=== PATIENT | female | born 1970 | race Hispanic/Latino ===

== ENCOUNTER 2018-05-11 19:44 | Observation (INO) | payer OTHER ==
[~2018-05-11] VITALS: Ht 160 cm; Wt 85.3 kg
[~2018-05-11 19:44] MED LIST: ADVIL; BENTYL; DEXILANT; HYDROCHLOROTHIAZIDE; HYDROCODON-ACE1 EA11 PO; ZOFRAN ODT4 MG SL
[2018-05-11 20:37] LABS: BASOPHILS # (AUTO) 0.1 (0.0-0.1); BASOPHILS % 0.9 % (0.0-1.0); EOSINOPHILS # (AUTO) 0.3 (0.0-0.4); EOSINOPHILS % 4.5 % (0.0-6.0); HEMATOCRIT 23.3 % (34.2-44.1); LYMPHOCYTES % 43.5 % (18.0-39.1); MEAN CORPUSCULAR HEMOGLOBIN 15.9 pg (28-32); MEAN CORPUSCULAR HGB CONC 27.5 g/dL (31-35); MEAN CORPUSCULAR VOLUME 57.8 fL (81-99); MONOCYTES # (AUTO) 0.5 (0.2-0.8); MONOCYTES % 6.6 % (4.4-11.3); NEUTROPHILS # (AUTO) 3.1 (2.1-6.9); NEUTROPHILS % 44.4 % (38.7-80.0); PLATELET COUNT 387 x10e3/uL (140-360); RED BLOOD COUNT 4.03 x10e6/uL (3.6-5.1); RED CELL DISTRIBUTION WIDTH 19.9 % (11.7-14.4)
[2018-05-11 20:38] LABS: HEMOGLOBIN 6.4 g/dL (12.0-16.0)
[2018-05-11 20:43] LABS: INR 1.02; PROTHROMBIN TIME 12.6 seconds (11.9-14.5)
[2018-05-11 20:44] LABS: PARTIAL THROMBOPLASTIN TIME 26.6 seconds (23.8-35.5)
[2018-05-11 20:55] LABS: % IRON SATURATION 2 % (15-50); ALANINE AMINOTRANSFERASE 7 IU/L (0-55); ALBUMIN 3.7 g/dL (3.5-5.0); ALBUMIN/GLOBULIN RATIO 0.9 (0.8-2.0); ALKALINE PHOSPHATASE 41 IU/L (40-150); ANION GAP 14.7 mmol/L (8-16); BLOOD UREA NITROGEN 21 mg/dL (7-26); BUN/CREATININE RATIO 29 (6-25); CALCIUM 9.2 mg/dL (8.4-10.2); CARBON DIOXIDE 23 mmol/L (22-29); CHLORIDE 108 mmol/L (98-107); CREATINE KINASE 34 IU/L (29-168); CREATININE, SERUM 0.73 mg/dL (0.57-1.11); EST GLOMERULAR FILTRATION RATE > 60 ML/MIN (60-); GLUCOSE 90 mg/dL (74-118); IRON 12 ug/dL (50-170); POTASSIUM 3.7 mmol/L (3.5-5.1); SODIUM 142 mmol/L (136-145); TOTAL IRON BINDING CAPACITY 505 ug/dL (261-478); TRANSFERRIN 361 mg/dL (180-382)
--- NOTE | 2018-05-11 20:56 | Diagnostic Imaging Report ---
EXAM: XR CHEST 1 VIEW DATE: 05/11/2018 8:16 PM INDICATION: Shortness of breath COMPARISON: None FINDINGS: Lines and Tubes: None Heart and Mediastinum: No acute cardiomediastinal findings. Lungs and Pleura: No significant pleural effusion, pneumothorax, or focal consolidation. Bones and Soft Tissues: No acute findings. IMPRESSION: 1. No acute cardiopulmonary findings. Signed by: Dr. Da Manley MD on 05/11/2018 8:53 PM
[2018-05-11 21:15] LABS: FERRITIN 1.14 ng/mL (4.63-204.00)
[2018-05-11] MEDS ORDERED: ONDANSETRON HCL INJ 2 MG/ML VIAL IV PRN (22:00)
[2018-05-11] MEDS ORDERED: SODIUM CHLORIDE 0.9% 250ML 250 ML IV ONE (22:00)
[2018-05-11] MEDS ORDERED: FUROSEMIDE INJ 10 MG/ML 2 ML VIAL IV PRN (22:00)
[2018-05-11] MEDS ORDERED: SODIUM CHLORIDE FLUSH 10 ML SYR INJ PRN (22:00)
[2018-05-12] MEDS ORDERED: SODIUM CHLORIDE 0.9% 1000ML 1,000 ML ONE (01:52)
[2018-05-12 05:44] LABS: BASOPHILS % 0.7 % (0.0-1.0); EOSINOPHILS # (AUTO) 0.3 (0.0-0.4); EOSINOPHILS % 4.1 % (0.0-6.0); HEMATOCRIT 24.8 % (34.2-44.1); HEMOGLOBIN 7.2 g/dL (12.0-16.0); LYMPHOCYTES # (AUTO) 2.6 (1.0-3.2); LYMPHOCYTES % 43.3 % (18.0-39.1); MEAN CORPUSCULAR HEMOGLOBIN 18.3 pg (28-32); MEAN CORPUSCULAR VOLUME 62.9 fL (81-99); MONOCYTES # (AUTO) 0.4 (0.2-0.8); MONOCYTES % 6.5 % (4.4-11.3); NEUTROPHILS # (AUTO) 2.7 (2.1-6.9); NEUTROPHILS % 45.1 % (38.7-80.0); PLATELET COUNT 290 x10e3/uL (140-360); RED BLOOD COUNT 3.94 x10e6/uL (3.6-5.1); RED CELL DISTRIBUTION WIDTH 24.6 % (11.7-14.4)
[2018-05-12 06:07] LABS: ALANINE AMINOTRANSFERASE 6 IU/L (0-55); ALBUMIN 3.4 g/dL (3.5-5.0); ALKALINE PHOSPHATASE 34 IU/L (40-150); ANION GAP 12.6 mmol/L (8-16); BLOOD UREA NITROGEN 20 mg/dL (7-26); BUN/CREATININE RATIO 31 (6-25); CALCIUM 8.7 mg/dL (8.4-10.2); CARBON DIOXIDE 23 mmol/L (22-29); CHLORIDE 109 mmol/L (98-107); CREATININE, SERUM 0.64 mg/dL (0.57-1.11); EST GLOMERULAR FILTRATION RATE > 60 ML/MIN (60-); GLUCOSE 88 mg/dL (74-118); POTASSIUM 3.6 mmol/L (3.5-5.1); SODIUM 141 mmol/L (136-145)
[2018-05-12 07:16] LABS: HEMATOCRIT 25.9 % (34.2-44.1); HEMOGLOBIN 7.5 g/dL (12.0-16.0)
--- NOTE | 2018-05-12 07:39 | History and Physical ---
The patient came in for symptomatic anemia. HISTORY OF PRESENT ILLNESS: This patient was seen in the office for fatigue, tiredness and was noted to have pallor. H and H was drawn at that time, and it was 6.6. The patient was sent to the emergency room for possible blood transfusion. PAST MEDICAL HISTORY: No medical history except for heavy menstrual cycles. SURGICAL HISTORY: Includes history of gastric bypass and also history of gallbladder being removed. REVIEW OF SYSTEMS: Positive for some chest pressure. Positive for some tachycardia. No nausea, vomiting, diarrhea. No constipation, rectal bleeding, hematochezia, hematemesis. Positive for increased uterine bleeding, more than heavier regular periods. SOCIAL HISTORY: No ETOH. No IV drug abuse. PHYSICAL EXAMINATION GENERAL: The patient is alert and oriented times 3. VITAL SIGNS: Blood pressure is 135/78, heart rate 80-90, respirations 17, oxygen saturation is 100%. HEENT: Normocephalic and atraumatic. Pupils reactive to light and accommodation. CV: S1 and S2 normal. Regular rate and rhythm. ABDOMEN: Nontender and nondistended. EXTREMITIES: No clubbing. No cyanosis. No edema. NEUROLOGIC: Alert and oriented times 3. No focal deficits. LABS AND X-RAYS: EKG is normal sinus rhythm with rate of 72. Chest x-ray normal. CBC with hemoglobin 6.4, hematocrit 23.3. Chemistry with mild hypochloremia of 108. Coagulation studies were normal. ASSESSMENT: Symptomatic anemia. The patient has been transfused 2 units of packed red blood cells. We are waiting for a post transfusion H and H. Will continue monitoring the patient. IV iron will be given once the patient comes to the floor. Will also consult gastroenterology. Do an abdominal ultrasound just to make sure of any uterine pathology. Further recommendations per clinical course. Will continue monitoring the patient. Job#: [id number] JUAN PABLO
[2018-05-12 09:18] LABS: EOSINOPHILS % (MANUAL) 5 % (0-7); LYMPHOCYTES % (MANUAL) 47 % (19-48); MONOCYTES % (MANUAL) 7 % (3.4-9.0); NEUTROPHILS % (MANUAL) 41 % (40-74)
[2018-05-12 09:19] LABS: PLATELET ESTIMATE ADEQUATE; PLATELET MORPHOLOGY COMMENT NORMAL; RBC MORPHOLOGY COMMENT NORMAL
[2018-05-12 09:20] LABS: ANISOCYTOSIS SLIGHT; HYPOCHROMASIA MODERATE
--- NOTE | 2018-05-12 11:18 | Diagnostic Imaging Report ---
PROCEDURE:ABDOMINAL ULTRASOUND COMPARISON:None. INDICATIONS: Anemia, Heavy Bleeding TECHNIQUE: Transverse and longitudinal images of the upper abdomen were obtained. FINDINGS: Liver: Size: 14 cm in the right midclavicular line, normal Appearance: Normal echogenicity, smooth contour Mass: No focal masses Spleen: Size: 10.2 cm in length, normal Echogenicity: Normal Mass: No focal masses Gallbladder: Status post cholecystectomy. Bile Ducts: Intrahepatic Ducts: No dilatation Extrahepatic Ducts: Common bile duct measures 0.3 cm, no dilatation Pancreas: Visualized portions of the neck and proximal body are normal. Right Kidney: Size: 9 cm Echogenicity: Normal Collecting System: No hydronephrosis Stone: None Cyst/Mass: None Left Kidney: Size: 10.2 cm Echogenicity: Normal Collecting System: No hydronephrosis Stone: None Cyst/Mass: None Vessels: Aorta: Visualized portions are normal, a portion is obscured by overlying bowel gas Inferior Vena Cava: Visualized portions and normal Main Portal Vein: 0.8 cm, normal size with hepatopedal flow. Free Fluid: No ascites or pleural effusions IMPRESSION: No acute sonographic findings. No free fluid. Status post cholecystectomy. Dictated by: BRAD SHAH M.D. on 05/12/2018 at 8:04 Electronically approved by: BRAD SHAH M.D. on 05/12/2018 at 8:04
--- NOTE | 2018-05-12 11:18 | Diagnostic Imaging Report ---
PROCEDURE:PELVIC ULTRASOUND COMPARISON:None. INDICATIONS:Anemia, Heavy Bleeding TECHNIQUE: Grayscale transverse and sagittal transabdominal images were obtained of the pelvis. FINDINGS: UTERUS: Measures 10.3 cm in length and appears enlarged. No sonographic evidence of fibroid. ENDOMETRIUM: Unremarkable in appearance. Endometrial stripe measures 0.2 cm. RIGHT OVARY: The right ovary measures 3.5 cm. LEFT OVARY: The left ovary measures 3.3 cm. There is no free fluid within the pelvis. No adnexal masses. CONCLUSION: Mildly enlarged multiparous uterus. No sonographic evidence of fibroid. Dictated by: BRAD SHAH M.D. on 05/12/2018 at 10:05 Electronically approved by: BRAD SHAH M.D. on 05/12/2018 at 10:05
[2018-05-12 20:00] VITALS: BP 113/67
[2018-05-12 22:56] VITALS: BP 113/67
[2018-05-12 23:00] VITALS: BP 113/67
[2018-05-13] VITALS: BP 107/58
[2018-05-13 04:00] VITALS: BP 114/61
[2018-05-13 05:22] LABS: BASOPHILS # (AUTO) 0.1 (0.0-0.1); BASOPHILS % 0.7 % (0.0-1.0); EOSINOPHILS # (AUTO) 0.3 (0.0-0.4); EOSINOPHILS % 4.4 % (0.0-6.0); HEMATOCRIT 26.5 % (34.2-44.1); HEMOGLOBIN 7.7 g/dL (12.0-16.0); LYMPHOCYTES # (AUTO) 3.6 (1.0-3.2); LYMPHOCYTES % 47.1 % (18.0-39.1); MEAN CORPUSCULAR HEMOGLOBIN 17.9 pg (28-32); MEAN CORPUSCULAR HGB CONC 29.1 g/dL (31-35); MEAN CORPUSCULAR VOLUME 61.6 fL (81-99); MONOCYTES # (AUTO) 0.5 (0.2-0.8); MONOCYTES % 6.4 % (4.4-11.3); NEUTROPHILS # (AUTO) 3.2 (2.1-6.9); NEUTROPHILS % 41.3 % (38.7-80.0); PLATELET COUNT 314 x10e3/uL (140-360); RED CELL DISTRIBUTION WIDTH 24.1 % (11.7-14.4)
[2018-05-13 05:48] LABS: BLOOD UREA NITROGEN 18 mg/dL (7-26); BUN/CREATININE RATIO 25 (6-25); CARBON DIOXIDE 24 mmol/L (22-29); CHLORIDE 109 mmol/L (98-107); CREATININE, SERUM 0.73 mg/dL (0.57-1.11); EST GLOMERULAR FILTRATION RATE > 60 ML/MIN (60-); GLUCOSE 83 mg/dL (74-118); SODIUM 141 mmol/L (136-145)
[2018-05-13] MEDS ORDERED: IRON DEXTRAN INJ 500 MG in SODIUM CHLORIDE 0.9% 500ML 500 ML IV PRN (07:00)
[2018-05-13 07:50] VITALS: BP 123/60
[2018-05-13 08:04] LABS: HYPOCHROMASIA MODERATE; RBC MORPHOLOGY COMMENT ABNORMAL
[2018-05-13 08:05] LABS: BURR CELLS SLIGHT; POIKILOCYTOSIS SLIGHT
[2018-05-13 08:06] LABS: ELLIPTOCYTE, RBC SLIGHT; PLATELET ESTIMATE ADEQUATE; PLATELET MORPHOLOGY COMMENT NORMAL; STOMATOCYTES SLIG
[2018-05-13] MEDS ORDERED: DIPHENHYDRAMINE HCL INJ 25 MG in SODIUM CHLORIDE 0.9% 50ML 50 ML IV NR (09:00)
[2018-05-13] MEDS ORDERED: FAMOTIDINE INJ 20 MG in SODIUM CHLORIDE 0.9% 50ML 50 ML IV NR (09:00)
[2018-05-13] MEDS ORDERED: DEXAMETHASONE PHOS 10MG INJ 20 MG in SODIUM CHLORIDE 0.9% 50ML 50 ML IV NR (09:00)
[2018-05-13] MEDS ORDERED: IRON DEXTRAN INJ 50 MG in SODIUM CHLORIDE 0.9% 100 ML IV NR (09:30)
[2018-05-13] MEDS ORDERED: IRON SUCROSE 100 MG in SODIUM CHLORIDE 0.9% 100 ML 100 ML IV SCH (10:00)
[2018-05-13] MEDS ORDERED: FERROUS SULFAT325 MG (10:12)
[2018-05-13 10:15] VITALS: BP 123/60
[2018-05-13 11:00] VITALS: BP 129/59
== END 2018-05-13 11:16 | disposition home or self-care (01) ==
LOC: ER 19:44 → ERHOLD 23:37 → IMCU 05-12 19:42
PROVIDERS: ADMIT Family Medicine; ATTEND Family Medicine
DX: D50.0 Iron deficiency anemia secondary to blood loss (chronic) (principal); R07.9 Chest pain, unspecified; E87.8 Other disorders of electrolyte and fluid balance, not elsewhere classified; Z98.84 Bariatric surgery status; Z90.49 Acquired absence of other specified parts of digestive tract
CPT/HCPCS: 36415 ×3; 36430; 71045; 76700; 76856; 80048; 80053 ×2; 82550; 82553; 82728; 83540; 84466; 84484; 85014; 85018; 85025 ×3; 85610; 85730; 86850; 86900; 86920; 93005; 99284; G0378 ×3; J1756; J7030; P9016; J1100; J1200; J1750; J7050

== ENCOUNTER 2019-01-08 13:29 | Emergency (ER) | payer OTHER ==
[~2019-01-08] VITALS: Ht 160 cm; Wt 85.3 kg
[~2019-01-08 13:29] MED LIST changes: +FERROUS SULFAT325 MG
[2019-01-08] MEDS ORDERED: CLINDAMYCIN PHOS 600 MG/ 4 ML VIAL IM ONE (13:45)
[2019-01-08] MEDS ORDERED: KETOROLAC TROMETHAMINE 60 MG/2 ML VIAL IM ONE (13:45)
[2019-01-08] MEDS ORDERED: BUPIVACAINE HC 0.75% PF 10ML VIAL INJ ONE (13:45)
--- NOTE | 2019-01-08 14:10 | NUR ---
DR DEE AT BEDSIDE FOR DENTAL BLOCK, TOLERATED WELL. NO SIGNS OF ACUTE DISTRESS NOTED AT THIS TIME.
== END 2019-01-08 14:30 | disposition home or self-care (01) ==
LOC: ER 13:29
DX: K02.9 Dental caries, unspecified (principal); K04.4 Acute apical periodontitis of pulpal origin
CPT/HCPCS: 64400; 99282; J1885